=== PATIENT | female | born 1975 | race Caucasian/White ===

== ENCOUNTER 2019-08-30 07:05 | Emergency (ER) | payer OTHER, BC ==
[2019-08-30 07:23] VITALS: BP 135/100
--- NOTE | 2019-08-30 07:45 | ER Document Report ---
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 He says he is only been using it on fake skin. Her tetanus is up-to-date and she has no other complaints. TRAVEL OUTSIDE OF THE [place] IN LAST 30 DAYS: No - Related Data Home Medications: zoloft, trazadone, melatonin Past Medical History - Social History Smoking Status: Never Smoker Family History: None Patient has suicidal ideation: No Patient has homicidal ideation: No Review of Systems - Review of Systems Notes: REVIEW OF SYSTEMS GEN: Denies fever, chills, weight loss ENT: Denies sore throat, nasal discharge, ear pain EYES: Denies blurry vision, eye pain, discharge CV: Denies chest pain, palpitations, edema RESP: Denies cough, shortness of breath, wheezing GI: Denies abdominal pain, nausea, vomiting, diarrhea MSK: Denies joint pain/swelling, edema, SKIN: Finger injury LYMPH: Denies swollen glands/lymph nodes NEURO: Denies headache, focal weakness or numbness, dizziness PSYCH: Denies depression, suicidal or homicidal ideation PHYSICAL EXAMINATION General: No acute distress, well-nourished Head: Atraumatic, normocephalic ENT: Mouth normal, oropharynx moist, lips normal Eyes: Conjunctiva normal, pupils equal, lids normal Neck: No JVD, supple, no guarding Resp: No resp distress, equal chest rise GI: Nondistended, no guarding Back: No midline or CVA tenderness Ext: No deformities, no edema Skin: Well-perfused, no rash. Punctate needlestick injury on the pad of the right index finger. Neuro: Awake, alert. Face symmetric. Physical Exam - Vital signs Vitals: Temp Pulse Resp BP Pulse Ox 98.4 F 88 18 135/100 H 99 08/30/19 07:13 08/30/19 07:13 08/30/19 07:13 08/30/19 07:13 08/30/19 07:13 Course - Re-evaluation Re-evalutation: 08/30/19 07:44 Low risk/inconsequential injury with a solidbore needle is not been used on humans Tetanus is up-to-date Discussed risk benefits of HIV prophylaxis and agreed not to go forward will follow up with occupational health. I have discussed with the patient there likely diagnosis, aftercare plan, follow-up plans and my usual and customary return precautions. They verbalized understanding of this. - Vital Signs Vital signs: Temp Pulse Resp BP Pulse Ox 98.4 F 88 18 135/100 H 99 08/30/19 07:13 08/30/19 07:13 08/30/19 07:13 08/30/19 07:13 08/30/19 07:13 Discharge - Discharge Clinical Impression: Needlestick injury accident Condition: Good Disposition: HOME, SELF-CARE Additional Instructions: Follow-up with your occupational health provider for any needed hepatitis or HIV testing Referrals: GREER LEW PA [Primary Care Provider] - Follow up as needed
== END 2019-08-30 08:01 | disposition home or self-care (01) ==
LOC: ER 07:05
DX: S61.230A Puncture wound without foreign body of right index finger without damage to nail, initial encounter (principal); W27.3XXA Contact with needle (sewing), initial encounter; Y99.0 Civilian activity done for income or pay